=== PATIENT | male | born 1945 | race Caucasian/White ===

== ENCOUNTER 2016-07-10 19:14 | Emergency (ER) | payer OTHER ==
[~2016-07-10] VITALS: Ht 190.5 cm; Wt 125.1 kg
[2016-07-10 19:19] VITALS: TEMP 36.7; Ht 190.5 cm; Wt 125.1 kg
[2016-07-10] MEDS ORDERED: MULT-513 PO (19:50)
[2016-07-10] MEDS ORDERED: LISI-788 PO (19:50)
[2016-07-10] MEDS ORDERED: SIMV20TA2 PO (19:50)
[2016-07-10] MEDS ORDERED: ATEN-173 PO (19:50)
[2016-07-10] MEDS ORDERED: IBUP-1427 PO (20:22)
--- NOTE | 2016-07-10 20:22 | EMERGENCY ROOM VISIT NOTE ---
ED Visit Note First contact with patient: 20:02 CHIEF COMPLAINT: Right thumb injury, hematoma of left thigh HISTORY OF PRESENT ILLNESS: This 71-year-old male patient presents to the emergency department approximately one hour after injuring the right thumb and posterior aspect of the left thigh while using his rototiller. The patient states he was pushing the tiller when he hit a root or rock, the tiller came up and hit him on the posterior aspect of the left leg as he was attempting to dodge the machine. The patient rates the pain in his thumb as dull and achy, and 6/10 with movement. He denies pain in thigh. The patient has full range of motion of the finger, however he states that range of motion has declined since swelling has increased. No numbness or tingling. No lacerations. No other injuries. The patient has not had previous fracture to this finger. He also reports swelling and bruising on the posterior aspect of his left thigh. Patient states swelling has decreased significantly since the initial injury. The patient has taken nothing for his pain. REVIEW OF SYSTEMS: A 6 system review of systems was completed with positives and pertinent negatives in the HPI. ALLERGIES: None MEDICATIONS: Lisinopril/HCTZ, atenolol, simvastatin, multivitamin. PMH: Hypertension, hyperlipidemia. SOCIAL HISTORY: Patient lives at home with his . He is relatively active individual. Patient denies tobacco or drug use. He does report occasional alcohol use, however he has not had alcohol tonight. PHYSICAL EXAM: Vital Signs: Reviewed Nurse's notes, vital signs stable. GENERAL : 71-year-old male, in no acute distress, but appears to be in pain, well- developed, well-nourished. CHEST/LUNGS: Heart rate and rhythm regular. All pulses strong, including those in distal extremities. MUSCULOSKELETAL: There is no deformity of the right thumb. The patient has normal flexion and normal extension of the right thumb. strength to resistance is 5/5. The joint is not significantly tender to palpation. There is no ligamentous instability. There is no laceration. Capillary refill less than 2 seconds. No tenderness of the remaining fingers or hand. Full range of motion of the wrist. NEURO: Alert and oriented to person, place, and time. Normal sensation to light and sharp touch. Extremities: Hematoma, approximately the size of a grapefruit, noted on posterior aspect of left thigh. Patient states this is significantly smaller than it was originally. Hematoma is soft to palpation without nodules, warmth, pain with palpation. Strength 5/5 in lower extremity. Patient moves all extremities well. EMERGENCY DEPARTMENT COURSE: I examined the patient. I discussed with the patient possible workup, including x-ray of the thumb and ultrasound of the hematoma. Patient does not recall getting hit in the thumb or specific injury, but suspects more of a ligament injury due to the kickback of the machine. Also discussed with the patient likelihood of a blood clot related to the hematoma in his leg at this point. Hematoma has significantly decreased in size since initial injury, and blood clot at this point in time is unlikely. Patient declines further workup at this time. I strongly advise patient to follow up next week with his primary care physician, especially if no improvement in symptoms. If worsening redness, swelling, pain, difficulty with movement occur, patient should follow up immediately in the emergency department. Further, if patient experiences any dyspnea, he should seek care in the emergency Department immediately. The patient was discharged home in good condition. DIAGNOSIS: Right thumb contusion, hematoma of left leg DISCHARGE INSTRUCTIONS: Ice and elevation for 24-48 hrs. Ibuprofen 600 mg and Tylenol 1000 mg every 6 hrs as needed for pain. Follow up with your family doctor or an orthopedic surgeon if symptoms persist in 5-7 days. Current/Historical Medications Scheduled Atenolol (Tenormin), 25 MG PO DAILY Lisinopril/Hctz (Zestoretic 20MG/25MG), 1 TAB PO DAILY Multivitamins/Minerals (Mvi With Minerals), 1 TAB PO DAILY Simvastatin (Zocor), 20 MG PO QPM Scheduled PRN Ibuprofen Tab (Motrin), 600 MG PO Q6H PRN for Pain Vital Signs Date Time Temp Pulse Resp B/P (MAP) Pulse Ox O2 Delivery O2 Flow Rate FiO2 07/10/16 20:29 71 16 124/74 98 07/10/16 19:19 36.7 96 20 137/86 93 Room Air Departure Information Impression Primary Impression: Traumatic hematoma of left thigh Additional Impression: Contusion of right thumb Dispostion Home / Self-Care Condition GOOD Prescriptions Ibuprofen Tab (MOTRIN) 600 Mg Tab 600 MG PO Q6H Y for Pain for 10 Days, #40 TAB Prov: Janet Yates PA-C 07/10/16 Referrals Du Shaffer M.D. (MEDICAL) (PCP) Patient Instructions My [facility] Additional Instructions ORTHOPEDIC INSTRUCTIONS: Ibuprofen(Motrin, Advil) may be used for fever or pain. Use 600mg every six hours as needed. Take with food. Avoid using more than 2400mg in a 24 hour period. Do not use 2400mg per day for more than three consecutive days without physician direction. Prolonged inappropriate use can lead to stomach upset or ulcers. Caution advised with ibuprofen usage due to HTN, CAD history. Use for shortest period of time necessary for inflammation and discomfort. (AND/OR) Acetaminophen(Tylenol) may be used for fever or pain. Use 1000mg every six hours as needed. Avoid using more than 4000mg in a 24 hour period. Ice compresses for 20 minutes at a time four times daily for 2-3 days of right thumb. Warm, moist compresses in the same manner for hematoma on posterior thigh. Stay active. Rest the thumb injury, but discussion regarding continued ambulation, stretching, and movement of the thigh to prevent blood clot. Return to the ER immediately for any numbness, tingling, severe pain, extreme swelling in the extremity or as needed. Follow-up with your primary care physician in 2 to 3 days for a recheck of your current condition. Problem Qualifiers Primary Impression: Traumatic hematoma of left thigh Encounter type: initial encounter Qualified Codes: S70.12XA - Contusion of left thigh, initial encounter Additional Impression: Contusion of right thumb Encounter type: initial encounter Damage to nail status: without damage Qualified Codes: S60.011A - Contusion of right thumb without damage to nail, initial encounter
[2016-07-10 20:29] VITALS: BP 124/74; PULSE 71; O2SAT 98
== END 2016-07-10 20:29 | disposition home or self-care (01) ==
LOC: C.EDB 19:15 → C.EDD 20:29
DX: S70.12XA Contusion of left thigh, initial encounter (principal); S60.011A Contusion of right thumb without damage to nail, initial encounter; W29.3XXA Contact with powered garden and outdoor hand tools and machinery, initial encounter; Y92.017 Garden or yard in single-family (private) house as the place of occurrence of the external cause; Y93.H2 Activity, gardening and landscaping; I10 Essential (primary) hypertension; E78.5 Hyperlipidemia, unspecified